=== PATIENT | male | born 1935 | race Caucasian/White ===

== ENCOUNTER 2019-01-15 00:38 | Emergency (ER) | payer OTHER, MEDICARE, BC ==
[2019-01-15 00:44] VITALS: BP 120/96; PULSE 102
[2019-01-15] MEDS ORDERED: Sodium Chloride 0.9% 10 ML Syringe FLUSH PRN (00:45)
[2019-01-15 01:30] LABS: CHLORIDE,CL 103 mmol/L (98-107); SODIUM,NA 139 mmol/L (136-145)
[2019-01-15 01:31] LABS: ANION GAP 19.6 mmol/L (10-20)
--- NOTE | 2019-01-15 03:17 | EDM.PDOC ---
ED HPI GENERAL MEDICAL PROBLEM - General Chief Complaint: Fever Stated Complaint: FEVER Time Seen by Provider: 01/15/19 00:38 Source of Information: Reports: Patient History Limitations: Reports: No Limitations - History of Present Illness INITIAL COMMENTS - FREE TEXT/NARRATIVE: Pt. presents to ER with complaints of myalgias and fever. He states that it started this evening. He denies any cough, chest congestion, shortness of breath or chest pain. Denies any sore throat. No sinus congestion. Denies any neck stiffness or back pain. Pt. denies any abdominal pain. No nausea, vomiting, or diarrhea. No skin rashes. Pt. denies any dysuria. He has been experiencing some increased peripheral edema and was recently started on HCTZ. He states that the swelling in his feet have improved appreciably. Denies any rashes or skin erythema to extremities or torso. 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: Other (see below) (myalgias) Generalized Pain Score (Numeric/FACES): 8 - Related Data Allergies Allergy/AdvReac Type Severity Reaction Status Date / Time No Known Allergies Allergy Verified 01/15/19 00:44 Home Meds: Home Meds Atenolol [Tenormin] 25 mg PO DAILY 07/05/14 [History] Erythromycin Base [Erythromycin] 2 tab PO DAILY PRN 07/05/14 [History] Aspirin 81 mg PO DAILY 01/15/19 [History] Cholecalciferol (Vitamin D3) [Vitamin D3] 2,000 unit PO DAILY 01/15/19 [History] Chondroitin/Glucosamine [Glucosamine-Chondroitin] 1 cap PO BID 01/15/19 [History ] Finasteride 5 mg PO DAILY 01/15/19 [History] Fluticasone Propionate 2 spray NS ASDIRECTED 01/15/19 [History] Gabapentin [Neurontin] 600 mg PO TID PRN 01/15/19 [History] Ibuprofen/Diphenhydramine Cit [Advil Pm Caplet] 1 each PO BEDTIME PRN 01/15/19 [ History] Levothyroxine [Synthroid] 100 mcg PO ACBREAKFAST 01/15/19 [History] Sildenafil [Viagra] 50 mg PO BEDTIME PRN 01/15/19 [History] Sod Chlor&Bicarb/Squeez Bottle [Sinus Rinse Starter Kit] 1 each NS TID PRN 01/15 [History] Tamsulosin [Tamsulosin 24 Hr] 0.8 mg PO BEDTIME 01/15/19 [History] amLODIPine [Norvasc] 2.5 mg PO DAILY 01/15/19 [History] metroNIDAZOLE [Metrogel] 1 applic TP BID 01/15/19 [History] Past Medical History Cardiovascular History: Reports: Hypertension - Past Surgical History GI Surgical History: Reports: Other (See Below) Other GI Surgeries/Procedures: 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 Musculoskeletal Surgical History: Reports: Knee Replacement Social & Family History - Tobacco Use Smoking Status *Q: Former Smoker Used Tobacco, but Quit: Yes Month/Year Tobacco Last Used: 1967 ED ROS GENERAL - Review of Systems Review Of Systems: See Below Constitutional: Reports: Fever HEENT: Reports: No Symptoms Respiratory: Reports: No Symptoms Cardiovascular: Reports: No Symptoms Endocrine: Reports: No Symptoms GI/Abdominal: Reports: No Symptoms : Reports: No Symptoms Musculoskeletal: Reports: Joint Pain, Muscle Pain, Muscle Stiffness Skin: Reports: No Symptoms Neurological: Reports: No Symptoms Psychiatric: Reports: No Symptoms Hematologic/Lymphatic: Reports: No Symptoms Immunologic: Reports: No Symptoms ED EXAM, GENERAL - Physical Exam Exam: See Below Exam Limited By: No Limitations General Appearance: Alert, WD/WN, No Apparent Distress Eye Exam: Bilateral Eye: EOMI, Normal Fundi, Normal Inspection, PERRL Ears: Normal External Exam, Normal Canal, Hearing Grossly Normal, Normal TMs Ear Exam: Bilateral Ear: Auricle Normal, Canal Normal, TM normal Nose: Normal Inspection, Normal Mucosa, No Blood Throat/Mouth: Normal Inspection, Normal Lips, Normal Teeth, Normal Gums, Normal Oropharynx, Normal Voice, No Airway Compromise Head: Atraumatic, Normocephalic Neck: Normal Inspection, Supple, Non-Tender, Full Range of Motion Respiratory/Chest: No Respiratory Distress, Lungs Clear, Normal Breath Sounds, No Accessory Muscle Use, Chest Non-Tender Cardiovascular: Normal Peripheral Pulses, Regular Rate, Rhythm, No Edema, No Gallop, No JVD Peripheral Pulses: 3+: Radial (R) GI/Abdominal: Normal Bowel Sounds, Soft, Non-Tender, No Organomegaly, No Distention, No Mass, Pelvis Stable (Male) Exam: Deferred Rectal (Males) Exam: Deferred Back Exam: Normal Inspection, Full Range of Motion Extremities: Normal Inspection, Normal Range of Motion, Non-Tender, No Pedal Edema, Normal Capillary Refill Neurological: Alert, Oriented, CN II-XII Intact, Normal Cognition, Normal Gait, Normal Reflexes, No Motor/Sensory Deficits Psychiatric: Normal Affect, Normal Mood Skin Exam: Warm, Dry, Intact, Normal Color, No Rash Lymphatic: No Adenopathy Course - Vital Signs Last Recorded V/S: Last Vital Signs Temp 37.9 C 01/15/19 00:39 Pulse 102 H 01/15/19 00:39 Resp 18 01/15/19 00:39 BP 120/96 H 01/15/19 00:39 Pulse Ox 99 01/15/19 00:39 - Orders/Labs/Meds Orders: Active Orders 24 hr Category Date Time Status Chest 2V [CR] Stat Exams 01/15/19 00:46 Taken CULTURE BLOOD [BC] Stat Lab 01/15/19 00:56 Received CULTURE BLOOD [BC] Stat Lab 01/15/19 01:03 Received Blood Culture x2 Reflex Set [OM.PC] Stat Oth 01/15/19 00:46 Ordered Peripheral IV Insertion Adult [OM.PC] Routine Oth 01/15/19 00:46 Ordered Labs: Laboratory Tests 01/15/19 01/15/19 01/15/19 Range/Units 00:56 00:56 00:56 WBC 8.6 (4.0-10.0) x10^3/uL RBC 3.90 L (4.5-6.0) x10^6/uL Hgb 12.3 L (14.0-18.0) g/dL Hct 38.7 L (40.0-52.0) % MCV 99.2 H (78.0-93.0) fL MCH 31.5 (26.0-32.0) pg MCHC 31.8 L (32.0-36.0) g/dL RDW Coeff of Justin 12.5 (10.0-15.0) % Plt Count 202 (130-400) x10^3/uL Neut % (Auto) 80.7 H (50.0-80.0) % Lymph % (Auto) 9.9 L (25.0-50.0) % [place] % (Auto) 7.8 (2.0-11.0) % Eos % (Auto) 1.4 (0.0-4.0) % Baso % (Auto) 0.2 (0.2-1.2) % PT 11.6 (10.0-12.8) SEC INR 1.0 L (2.0-3.5) Sodium 139 (136-145) mmol/L Potassium 4.6 (3.5-5.1) mmol/L Chloride 103 (98-107) mmol/L Carbon Dioxide 21 (21-32) mmol/L Anion Gap 19.6 (10-20) mmol/L BUN 17 (7-18) mg/dL Creatinine 1.4 H (0.70-1.30) mg/dL Est Cr Clr Drug Dosing TNP Estimated GFR (MDRD) 48 Glucose 140 H (74-106) mg/dL Lactic Acid (0.4-2.0) mmol/L Calcium 8.7 (8.5-10.1) mg/dL Corrected Calcium 9.02 (8.5-10.1) mg/dL Magnesium 1.2 L (1.8-2.4) mg/dL Total Bilirubin 0.7 (0.2-1.0) mg/dL AST 41 H (15-37) U/L ALT 36 (16-63) U/L Alkaline Phosphatase 149 H (46-116) U/L C-Reactive Protein < 0.2 (<=0.9) mg/dL Total Protein 7.9 (6.4-8.2) g/dL Albumin 3.6 (3.4-5.0) g/dL Globulin 4.3 Albumin/Globulin Ratio 0.84 Urine Color (YELLOW) Urine Appearance (CLEAR) Urine pH (5.0-8.0) Ur Specific [place] Urine Protein (NEGATIVE) mg/dL Urine Glucose (UA) (NEGATIVE) mg/dL Urine Ketones (NEGATIVE) mg/dL Urine Occult Blood (NEGATIVE) Urine Nitrite (NEGATIVE) Urine Bilirubin (NEGATIVE) Urine Urobilinogen (0.2) EU/dL Ur Leukocyte Esterase (NEGATIVE) Urine RBC (NOT SEEN) /HPF Urine WBC (NOT SEEN) /HPF Ur Squamous Epith Cells (NEGATIVE) /HPF Amorphous Sediment Urine Bacteria (NEGATIVE) /HPF Urine Mucus (NEGATIVE) /LPF 01/15/19 01/15/19 Range/Units 00:56 01:45 WBC (4.0-10.0) x10^3/uL RBC (4.5-6.0) x10^6/uL Hgb (14.0-18.0) g/dL Hct (40.0-52.0) % MCV (78.0-93.0) fL MCH (26.0-32.0) pg MCHC (32.0-36.0) g/dL RDW Coeff of Justin (10.0-15.0) % Plt Count (130-400) x10^3/uL Neut % (Auto) (50.0-80.0) % Lymph % (Auto) (25.0-50.0) % [place] % (Auto) (2.0-11.0) % Eos % (Auto) (0.0-4.0) % Baso % (Auto) (0.2-1.2) % PT (10.0-12.8) SEC INR (2.0-3.5) Sodium (136-145) mmol/L Potassium (3.5-5.1) mmol/L Chloride (98-107) mmol/L Carbon Dioxide (21-32) mmol/L Anion Gap (10-20) mmol/L BUN (7-18) mg/dL Creatinine (0.70-1.30) mg/dL Est Cr Clr Drug Dosing Estimated GFR (MDRD) Glucose (74-106) mg/dL Lactic Acid 1.3 (0.4-2.0) mmol/L Calcium (8.5-10.1) mg/dL Corrected Calcium (8.5-10.1) mg/dL Magnesium (1.8-2.4) mg/dL Total Bilirubin (0.2-1.0) mg/dL AST (15-37) U/L ALT (16-63) U/L Alkaline Phosphatase (46-116) U/L C-Reactive Protein (<=0.9) mg/dL Total Protein (6.4-8.2) g/dL Albumin (3.4-5.0) g/dL Globulin Albumin/Globulin Ratio Urine Color Yellow (YELLOW) Urine Appearance Slightly cloudy H (CLEAR) Urine pH 6.0 (5.0-8.0) Ur Specific [place] 1.020 Urine Protein 100 H (NEGATIVE) mg/dL Urine Glucose (UA) Negative (NEGATIVE) mg/dL Urine Ketones Negative (NEGATIVE) mg/dL Urine Occult Blood Small H (NEGATIVE) Urine Nitrite Negative (NEGATIVE) Urine Bilirubin Negative (NEGATIVE) Urine Urobilinogen 0.2 (0.2) EU/dL Ur Leukocyte Esterase Negative (NEGATIVE) Urine RBC 0-5 (NOT SEEN) /HPF Urine WBC Not seen (NOT SEEN) /HPF Ur Squamous Epith Cells Not seen (NEGATIVE) /HPF Amorphous Sediment Rare Urine Bacteria Rare (NEGATIVE) /HPF Urine Mucus Rare H (NEGATIVE) /LPF Meds: Medications Discontinued Medications Generic Name Dose Route Start Last Admin Trade Name Freq PRN Reason Stop Dose Admin Sodium Chloride 10 ml 01/15/19 00:45 01/15/19 01:00 Saline Flush FLUSH 10 ml ASDIRECTED PRN Administration Keep Vein Open - Radiology Interpretation Free Text/Narrative:: Possible bronchitis, likely chronic. Departure - Departure Time of Disposition: 02:10 Disposition: Home, Self-Care 01 Clinical Impression: Viral illness, Bronchitis - Discharge Information Instructions: Viral Illness, Adult Referrals: PCP,Unobtain [Primary Care Provider] - Forms: ED Department Discharge Additional Instructions: Tylenol as needed for fever or body aches. Drink plenty of fluids. Follow-up with PCP in the next 7-10 days. Return to ER if you have any lightheadedness, weakness, or shortness of breath. - My Orders Last 24 Hours: My Active Orders 01/15/19 00:46 Chest 2V [CR] Stat Blood Culture x2 Reflex Set [OM.PC] Stat Peripheral IV Insertion Adult [OM.PC] Routine 01/15/19 00:56 CULTURE BLOOD [BC] Stat 01/15/19 01:03 CULTURE BLOOD [BC] Stat - Assessment/Plan Last 24 Hours: My Active Orders 01/15/19 00:46 Chest 2V [CR] Stat Blood Culture x2 Reflex Set [OM.PC] Stat Peripheral IV Insertion Adult [OM.PC] Routine 01/15/19 00:56 CULTURE BLOOD [BC] Stat 01/15/19 01:03 CULTURE BLOOD [BC] Stat Plan: Tylenol as needed for fever or body aches. Drink plenty of fluids. Follow-up with PCP in the next 7-10 days. Return to ER if you have any lightheadedness, weakness, or shortness of breath.
--- NOTE | 2019-01-15 08:01 | CR ---
[id number] RAD/RAD Chest PA And Lateral EXAM: RAD Chest PA And Lateral INDICATION: SYNCOPE, BRADYCARDIA COMPARISON: CT from 2011. DISCUSSION: Mild cardiomegaly. Slight tortuosity of the thoracic aorta. Atherosclerosis in the aortic arch. Subtle and somewhat nodular 17 mm opacity in the right upper lung. Finding is nonspecific. No infiltrate, effusion, pneumothorax, or edema. IMPRESSION: No acute findings in the chest. Possible right upper lobe nodule. Noncontrast chest CT is recommended. Gautam Miller MD 01/15/19 0800 Thank you for allowing us to participate in the care of your patient.
== END 2019-01-15 02:10 | disposition home or self-care (01) ==
LOC: VM.ED 00:38
DX: B34.9 Viral infection, unspecified (principal); J40 Bronchitis, not specified as acute or chronic; I10 Essential (primary) hypertension; Z87.891 Personal history of nicotine dependence; Z79.82 Long term (current) use of aspirin; Z79.899 Other long term (current) drug therapy
CPT/HCPCS: 36415; 71046; 80053; 81001; 83605; 83735; 85025; 85610; 86140; 87040; 87804; 87804-59; 99283-GF; 99284-25